=== PATIENT | male | born 1970 | race Two or more races ===

== ENCOUNTER 2021-02-25 04:07 | Emergency (ER) | payer SELFPAY ==
[~2021-02-25] VITALS: Ht 177.8 cm; Wt 126.1 kg
[2021-02-25] MEDS ORDERED: KETOROLAC TROMETH 60MG/2ML VIAL IM ONE (05:00)
[2021-02-25 06:02] VITALS: BP 124/80
== END 2021-02-25 06:01 | disposition home or self-care (01) ==
LOC: ER 04:07
DX: S62.322A Displaced fracture of shaft of third metacarpal bone, right hand, initial encounter for closed fracture (principal); S62.320A Displaced fracture of shaft of second metacarpal bone, right hand, initial encounter for closed fracture; S60.221A Contusion of right hand, initial encounter; X58.XXXA Exposure to other specified factors, initial encounter; Y93.89 Activity, other specified; Y92.89 Other specified places as the place of occurrence of the external cause; Y99.8 Other external cause status
CPT/HCPCS: 29125; 73130; 96372; 99283; J1885